=== PATIENT | male | born 1985 | race Two or more races ===

== ENCOUNTER 2022-09-16 10:20 | Emergency (ER) | payer SELFPAY ==
[2022-09-16] MEDS ORDERED: NA CHLORIDE 0.9% 1,000 ML ONE (11:02)
[2022-09-16] MEDS ORDERED: FAMOTIDINE 20 MG/2 ML VIAL IV ONE (11:02)
[2022-09-16] MEDS ORDERED: ONDANSETRON 4 MG/2 ML VIAL ONE ×2 (11:02→12:20)
[2022-09-16] MEDS ORDERED: MORPHINE 4 MG/ML SYR ONE ×2 (11:02→12:20)
--- NOTE | 2022-09-16 11:25 | RAD REPORT ---
EXAM DESCRIPTION: US - Abdomen Exam Limited - 09/16/2022 11:06 am CLINICAL HISTORY: Abdominal pain. COMPARISON: None. FINDINGS: The gallbladder wall is not thickened. A gallstone is not seen. The biliary tree is normal caliber. IMPRESSION: Unremarkable gallbladder ultrasound.
[2022-09-16 11:27] LABS: Absolute Lymphocytes (CBC) 1.5 K/uL (0.7-4.9); Hematocrit 48.8 % (39.6-49.0); Lymphocytes % 33.8 % (15.3-44.8); MCV 88.9 fL (80-100); MPV 9.7 fL (7.6-11.3)
[2022-09-16 11:28] LABS: Protime INR 1.1
[2022-09-16 11:46] LABS: Albumin 4.3 g/dL (3.4-5.0); Bilirubin Direct 0.2 mg/dL (0-0.2); Bilirubin Total 0.6 mg/dL (0.2-1.0); Magnesium 2.2 mg/dL (1.6-2.4); Protein, Total 7.9 g/dL (6.4-8.2); Troponin High Sensitivity 3.4 pg/mL (<58.9)
--- NOTE | 2022-09-16 11:58 | RAD REPORT ---
EXAM DESCRIPTION: Claire Single View09/16/2022 11:45 am CLINICAL HISTORY: Abdominal pain COMPARISON: none FINDINGS: The lungs appear clear of acute infiltrate. The heart is normal size IMPRESSION: No acute abnormalities displayed
[2022-09-16 12:12] LABS: Specific Gravity < 1.005 (1.005-1.030); Urine Bilirubin NEGATIVE (Negative); Urine Blood Negative (Negative); Urine Clarity Clear (Clear); Urine Color Colorless (Yellow); Urine Glucose NEGATIVE (Negative); Urine Protein NEGATIVE (Negative); Urine Urobilinogen Normal (Normal); Urine pH 7.5 (5.0-7.0)
--- NOTE | 2022-09-16 12:47 | RAD REPORT ---
EXAM DESCRIPTION: CTAbdomen Pelvis W Contrast - 09/16/2022 12:36 pm CLINICAL HISTORY: Abdominal pain. Constipation;Abd pain COMPARISON: <Comparisons> TECHNIQUE: Biphasic CT imaging of the abdomen and pelvis was performed with 100 ml non-ionic IV cont rast. All CT scans are performed using dose optimization technique as appropriate and may include automated exposure control or mA/KV adjustment according to patient size. FINDINGS: The lung bases are clear. The liver, spleen, pancreas, adrenal glands and kidneys are within normal limits. No bowel obstruction, free air, free fluid or abscess. There is a large volume of retained stool seen in the colon. The appendix is normal. No evidence of significant lymphadenopathy. No suspicious bony findings. IMPRESSION: Prominent constipation.
--- NOTE | 2022-09-16 12:58 | EDPHYS ---
Physician Documentation [facility] Name: Damian Eddy Jr Age: 37 yrs Sex: Male : 1985 Arrival Date: 09/16/2022 Time: 10:20 Bed 16 Private MD: ED Physician Jeff Reno HPI: 09/16 10:59 This 37 yrs old Male presents to ER via Ambulatory with complaints of jonna Abdominal Pain. 10:59 The patient presents with abdominal pain in the upper abdomen, in the right upper jonna quadrant, abdominal distention in the upper abdomen, in the lower abdomen. Onset: The symptoms/episode began/occurred 14 day(s) ago. The symptoms radiate to. Associated signs and symptoms: Pertinent positives: constipation. The symptoms are described as constant, crampy. Modifying factors: The symptoms are alleviated by nothing, the symptoms are aggravated by nothing. Severity of pain: At its worst the pain was moderate in the emergency department the pain is unchanged. The patient has not experienced similar symptoms in the past. Historical: - Allergies: 10:27 No Known Allergies; aa5 - PMHx: 10:27 Pancreatitis; aa5 - PSHx: 10:27 None; aa5 - Immunization history:: Adult Immunizations unknown. - Social history:: Smoking status: Patient reports the use of cigarette tobacco products. - Family history:: not pertinent. ROS: 10:59 Constitutional: Negative for fever, chills, and weight loss, Eyes: Negative for injury, jonna pain, redness, and discharge, ENT: Negative for injury, pain, and discharge, Neck: Negative for injury, pain, and swelling, Cardiovascular: Negative for chest pain, palpitations, and edema, Respiratory: Negative for shortness of breath, cough, wheezing, and pleuritic chest pain, Back: Negative for injury and pain, : Negative for injury, bleeding, discharge, and swelling, MS/Extremity: Negative for injury and deformity, Skin: Negative for injury, rash, and discoloration, Neuro: Negative for headache, weakness, numbness, tingling, and seizure, Psych: Negative for depression, anxiety, suicide ideation, homicidal ideation, and hallucinations, Allergy/Immunology: Negative for hives, rash, and allergies, Endocrine: Negative for neck swelling, polydipsia, polyuria, polyphagia, and marked weight changes, Hematologic/Lymphatic: Negative for swollen nodes, abnormal bleeding, and unusual bruising. 10:59 Abdomen/GI: Positive for abdominal pain, nausea and vomiting, of the epigastric area, right upper quadrant and left upper quadrant. Exam: 11:00 Constitutional: This is a well developed, well nourished patient who is awake, alert, jonna and in no acute distress. Head/Face: Normocephalic, atraumatic. Eyes: Pupils equal round and reactive to light, extra-ocular motions intact. Lids and lashes normal. Conjunctiva and sclera are non-icteric and not injected. Cornea within normal limits. Periorbital areas with no swelling, redness, or edema. ENT: Nares patent. No nasal discharge, no septal abnormalities noted. Tympanic membranes are normal and external auditory canals are clear. Oropharynx with no redness, swelling, or masses, exudates, or evidence of obstruction, uvula midline. Mucous membranes moist. Neck: Trachea midline, no thyromegaly or masses palpated, and no cervical lymphadenopathy. Supple, full range of motion without nuchal rigidity, or vertebral point tenderness. No Meningismus. Chest/axilla: Normal chest wall appearance and motion. Nontender with no deformity. No lesions are appreciated. Cardiovascular: Regular rate and rhythm with a normal S1 and S2. No gallops, murmurs, or rubs. Normal PMI, no JVD. No pulse deficits. Respiratory: Lungs have equal breath sounds bilaterally, clear to auscultation and percussion. No rales, rhonchi or wheezes noted. No increased work of breathing, no retractions or nasal flaring. Back: No spinal tenderness. No costovertebral tenderness. Full range of motion. Male : Normal genitalia with no discharge or lesions. Skin: Warm, dry with normal turgor. Normal color with no rashes, no lesions, and no evidence of cellulitis. MS/ Extremity: Pulses equal, no cyanosis. Neurovascular intact. Full, normal range of motion. Neuro: Awake and alert, GCS 15, oriented to person, place, time, and situation. Cranial nerves II-XII grossly intact. Motor strength 5/5 in all extremities. Sensory grossly intact. Cerebellar exam normal. Normal gait. Psych: Awake, alert, with orientation to person, place and time. Behavior, mood, and affect are within normal limits. 11:00 Abdomen/GI: Inspection: distension, that is mild, Bowel sounds: normal, Palpation: mild abdominal tenderness, moderate abdominal tenderness, in the epigastric area and right upper quadrant, Liver: no appreciated palpable abnormalities, Hernia: not appreciated. Vital Signs: 10:28 BP 121 / 90; Pulse 81; Resp 18 S; Temp 97.8(TE); Pulse Ox 100% on R/A; Weight 96.16 kg aa5 (R); Height 5 ft. 10 in. (R); 11:30 BP 124 / 85; Pulse 68; Resp 16; Pulse Ox 99% ; bp 12:30 BP 136 / 85; Pulse 75; Resp 16; Pulse Ox 100% ; bp 10:28 Body Mass Index 30.42 (96.16 kg, 177.8 cm) aa5 MDM: 10:32 Patient medically screened. [facility] 11:05 Differential diagnosis: appendicitis, bowel obstruction, Cholelithiasis, jonna diverticulitis, gastritis, gastroesophageal reflux disease, Irritable bowel syndrome, Mesenteric ischemia or infarction, non-specific abd pain, pancreatitis, Peptic Ulcer Disease, Pyelonephritis, urinary tract infection. Data reviewed: vital signs, nurses notes, lab test result(s), EKG, radiologic studies, CT scan, plain films. Consideration of Admission/Observation Escalation of care including admission/observation considered. I considered the following discharge prescriptions or medication management in the emergency department Medications were administered in the Emergency Department. See MAR. Test considered but Not performed: MRI: NO MRCP. Care significantly affected by the following chronic conditions: PANCREATITIS. Counseling: I had a detailed discussion with the patient and/or guardian regarding: the historical points, exam findings, and any diagnostic results supporting the discharge/admit diagnosis, lab results, radiology results, the need for outpatient follow up, for definitive care, a family practitioner, a dispatcher service. 09/16 10:33 Order name: Basic Metabolic Panel; Complete Time: 12:17 [facility] 09/16 10:33 Order name: CBC with Diff; Complete Time: 11:41 [facility] 09/16 10:33 Order name: LFT's; Complete Time: 12:17 [facility] 09/16 10:33 Order name: Magnesium; Complete Time: 12:17 [facility] 09/16 10:33 Order name: NT PRO-BNP; Complete Time: 12:17 09/16 10:33 Order name: PT-INR; Complete Time: 11:41 09/16 10:33 Order name: Troponin HS; Complete Time: 12:17 [facility] 09/16 10:33 Order name: Lipase; Complete Time: 12:17 [facility] 09/16 10:33 Order name: Urinalysis w/ reflexes; Complete Time: 12:17 09/16 10:33 Order name: XRAY Chest (1 view); Complete Time: 12:17 [facility] 09/16 10:51 Order name: CT Abd/Pelvis - PO and IV Contrast; Complete Time: 12:56 [facility] 09/16 10:51 Order name: US Abdomen Limited; Complete Time: 11:41 09/16 10:33 Order name: EKG; Complete Time: 10:34 [facility] 09/16 10:33 Order name: Cardiac monitoring; Complete Time: 11:48 [facility] 09/16 10:33 Order name: IV Saline Lock; Complete Time: 11:48 [facility] 09/16 10:33 Order name: Labs collected and sent; Complete Time: 11:48 [facility] 09/16 10:33 Order name: O2 Per Protocol; Complete Time: 11:48 [facility] 09/16 10:33 Order name: O2 Sat Monitoring; Complete Time: 11:48 [facility] Administered Medications: 11:00 Drug: NS 0.9% IV 1000 ml Route: IV; Rate: 1 bolus; Site: left forearm; bp 11:10 Drug: morphine IVP or IV 4 mg Route: IVP; Infused Over: 4 mins; Site: left forearm; bp 13:47 Follow up: Response: No adverse reaction bp 11:10 Drug: Ondansetron IVP 4 mg Route: IVP; Site: left forearm; bp 13:47 Follow up: Response: No adverse reaction bp 11:10 Drug: Famotidine IVP 20 mg Route: IVP; Site: left forearm; bp 13:47 Follow up: Response: No adverse reaction bp 12:23 Drug: NS 0.9% IV 1000 ml Route: IV; Rate: 1 bolus; Site: left forearm; bp 12:23 Drug: morphine IVP or IV 4 mg Route: IVP; Infused Over: 4 mins; Site: left forearm; bp 12:47 Follow up: Response: No adverse reaction bp 12:23 Drug: Ondansetron IVP 4 mg Route: IVP; Site: left forearm; bp 12:47 Follow up: Response: No adverse reaction bp 13:47 Drug: Lactulose PO 30 grams Volume: 45 ml; Route: PO; bp 13:47 Follow up: Response: No adverse reaction bp 13:47 Not Given (Other Intervention Used): Dulcolax [place] Suppository 10 mg UT once bp 13:47 Drug: Lactulose PO 30 grams Volume: 45 ml; Route: PO; bp 13:48 Follow up: Response: No adverse reaction bp Disposition Summary: 09/16/22 12:57 Discharge Ordered Location: Home jonna Problem: new ojnna Symptoms: have improved jonna Condition: Stable jonna Diagnosis - Epigastric abdominal tenderness jonna - Constipation, unspecified jonna - Constipation jonna Followup: jonna - With: Private Physician - When: 2 - 3 days - Reason: Recheck today's complaints, Continuance of care, Re-evaluation by your physician Followup: jonna - With: - When: 2 - 3 days - Reason: Recheck today's complaints, Re-evaluation by your physician Discharge Instructions: - Discharge Summary Sheet jonna - Abdominal Pain, Adult jonna - Constipation, Adult jonna - Constipation, Adult, [id number] jonna - Abdominal Pain, Adult, [id number] jonna Forms: - Medication Reconciliation Form jonna - Thank You Letter jonna - Antibiotic Education jonna - Prescription Opioid Use jonna - Work release form bp Prescriptions: - Dulcolax (bisacodyl) 10 mg Rectal suppository - insert 1 suppository by RECTAL route 2 times per day for 7 days; 14 jonna suppository; Refills: 0, Product Selection Permitted - Pepcid 20 mg Oral Tablet - take 1 tablet by ORAL route every 12 hours for 21 days; 42 tablet; Refills: 0, [facility] Product Selection Permitted - Zofran 4 mg Oral Tablet - take 1 tablet by ORAL route every 12 hours As needed; 20 tablet; Refills: 0, [facility] Product Selection Permitted - Lactulose 10 gram/15 mL Oral Solution - take 30 milliliters by ORAL route once daily; 300 milliliter; Refills: 0, [facility] Product Selection Permitted Signatures: Dispatcher [employer] [facility] Jeff Reno MD MD cha Calderon, Audri, RN RN aa5 Shukri Franks RN RN bp Corrections: (The following items were deleted from the chart) 10:59 10:34 Abdomen Pelvis W Con+CT.RAD.BRZ ordered. EDMS EDMS
--- NOTE | 2022-09-16 12:58 | ER ---
Nurse's Notes [facility] Name: Damian Eddy Jr Age: 37 yrs Sex: Male : 1985 Arrival Date: 09/16/2022 Time: 10:20 Bed 16 Private MD: Diagnosis: Epigastric abdominal tenderness;Constipation, unspecified;Constipation Presentation: 09/16 10:28 Chief complaint: Patient states: abd pain for approximately 1-2 weeks ago, pt states "I aa5 was admitted for my pancreas last year". Coronavirus screen: At this time, the client does not indicate any symptoms associated with coronavirus-19. Ebola Screen: Patient denies travel to an Ebola-affected area in the 21 days before illness onset. Initial Sepsis Screen: Does the patient meet any 2 criteria? No. Patient's initial sepsis screen is negative. Does the patient have a suspected source of infection? No. Patient's initial sepsis screen is negative. Risk Assessment: Do you want to hurt yourself or someone else? Patient reports no desire to harm self or others. Onset of symptoms was September 2022. 10:28 Acuity: CIRILO 3 aa5 10:28 Method Of Arrival: Ambulatory aa5 Triage Assessment: 10:30 General: Appears in no apparent distress. Behavior is calm, cooperative, appropriate bp for age. Pain: Complains of pain in epigastric area. EENT: No deficits noted. Neuro: No deficits noted. Cardiovascular: No deficits noted. Respiratory: No deficits noted. GI: Reports upper abdominal pain. : No signs and/or symptoms were reported regarding the genitourinary system. Derm: No deficits noted. Musculoskeletal: No deficits noted. Historical: - Allergies: 10:27 No Known Allergies; aa5 - PMHx: 10:27 Pancreatitis; aa5 - PSHx: 10:27 None; aa5 - Immunization history:: Adult Immunizations unknown. - Social history:: Smoking status: Patient reports the use of cigarette tobacco products. - Family history:: not pertinent. Screenin:30 [facility] ED Fall Risk Assessment (Adult) History of falling in the last 3 months, bp including since admission No falls in past 3 months (0 pts). Abuse screen: Denies threats or abuse. Denies injuries from another. Nutritional screening: No deficits noted. Tuberculosis screening: No symptoms or risk factors identified. Assessment: 10:30 General: SEE TRIAGE NOTE. bp 12:30 Reassessment: No changes from previously documented assessment. Patient is alert, bp oriented x 3, equal unlabored respirations, skin warm/dry/pink. PT RETURNED FROM CT. 14:07 Reassessment: Patient appears in no apparent distress at this time. Patient and/or iw family updated on plan of care and expected duration. Pain level reassessed. Patient is alert, oriented x 3, equal unlabored respirations, skin warm/dry/pink. 14:07 GI: Bowel sounds Abd is soft and non tender. iw Vital Signs: 10:28 BP 121 / 90; Pulse 81; Resp 18 S; Temp 97.8(TE); Pulse Ox 100% on R/A; Weight 96.16 kg aa5 (R); Height 5 ft. 10 in. (R); 11:30 BP 124 / 85; Pulse 68; Resp 16; Pulse Ox 99% ; bp 12:30 BP 136 / 85; Pulse 75; Resp 16; Pulse Ox 100% ; bp 10:28 Body Mass Index 30.42 (96.16 kg, 177.8 cm) aa5 ED Course: 10:24 Patient arrived in ED. am2 10:27 Arm band placed on. aa5 10:29 Triage completed. aa5 10:30 Shukri Franks, RN is Primary Nurse. bp 10:30 Patient has correct armband on for positive identification. Bed in low position. Call bp light in reach. Side rails up X2. 10:30 Inserted saline lock: 20 gauge in left forearm, using aseptic technique. Blood bp collected. 10:32 Jeff Reno MD is Attending Physician. jonna 11:08 US Abdomen Limited In Process Unspecified. EDMS 11:47 XRAY Chest (1 view) In Process Unspecified. EDMS 12:38 CT Abd/Pelvis - PO and IV Contrast In Process Unspecified. EDMS 12:57 Esteban Grover MD is Referral Physician. jonna 14:07 No provider procedures requiring assistance completed. IV discontinued, intact, iw bleeding controlled, No redness/swelling at site. Administered Medications: 11:00 Drug: NS 0.9% IV 1000 ml Route: IV; Rate: 1 bolus; Site: left forearm; bp 11:10 Drug: morphine IVP or IV 4 mg Route: IVP; Infused Over: 4 mins; Site: left forearm; bp 13:47 Follow up: Response: No adverse reaction bp 11:10 Drug: Ondansetron IVP 4 mg Route: IVP; Site: left forearm; bp 13:47 Follow up: Response: No adverse reaction bp 11:10 Drug: Famotidine IVP 20 mg Route: IVP; Site: left forearm; bp 13:47 Follow up: Response: No adverse reaction bp 12:23 Drug: NS 0.9% IV 1000 ml Route: IV; Rate: 1 bolus; Site: left forearm; bp 12:23 Drug: morphine IVP or IV 4 mg Route: IVP; Infused Over: 4 mins; Site: left forearm; bp 12:47 Follow up: Response: No adverse reaction bp 12:23 Drug: Ondansetron IVP 4 mg Route: IVP; Site: left forearm; bp 12:47 Follow up: Response: No adverse reaction bp 13:47 Drug: Lactulose PO 30 grams Volume: 45 ml; Route: PO; bp 13:47 Follow up: Response: No adverse reaction bp 13:47 Not Given (Other Intervention Used): Dulcolax [place] Suppository 10 mg [place] once bp 13:47 Drug: Lactulose PO 30 grams Volume: 45 ml; Route: PO; bp 13:48 Follow up: Response: No adverse reaction bp Medication: 14:07 VIS not applicable for this client. iw Outcome: 12:57 Discharge ordered by . jonna 14:07 Discharged to home ambulatory. iw 14:07 Condition: good 14:07 Discharge instructions given to patient, Instructed on discharge instructions, follow up and referral plans. medication usage, Demonstrated understanding of instructions, follow-up care, medications, Prescriptions given X 3. 14:07 Patient left the ED. iw Signatures: Dispatcher [employer] [facility] Jeff Reno MD MD cha Williams, Irene RN RN iw Lelia Good, RN RN [id number] Beatrice Ferrara Brian RN RN bp
[2022-09-16] MEDS ORDERED: LACTULOSE 20 GM/30 ML UCUP ONE (13:30)
[2022-09-16 14:14] VITALS: TEMP 97.8
[2022-09-16 14:17] VITALS: BP 136/85; O2SAT 100
== END 2022-09-16 14:07 | disposition home or self-care (01) ==
LOC: ER 10:20
DX: K59.00 Constipation, unspecified (principal)
CPT/HCPCS: 36415; 71045; 74177; 76705; 80048; 80076; 81003; 83690; 83735; 83880; 84484; 85025; 85610; 96374; 96375; 99284; J2405; J7030; Q9967

== ENCOUNTER 2022-12-11 11:59 | Emergency (ER) | payer OTHER, SELFPAY ==
--- OUTSIDE RECORDS SUMMARY | 2022-12-11 12:02 | XMS REPORT | Continuity of Care Document ---
:1985 Author Organization [facility] t Address [address] [place] [address] Care Team Providers Name Role Phone Asked, No Pcp Primary Care Physician Unavailable NASIR HARRIS SI Attending Clinician Unavailable BARBARA CLARK Attending Clinician Unavailable Salvatore Rivera Attending Clinician Unavailable MADINA BANDA Attending Clinician Unavailable Physician, No Primary or Family Admitting Clinician Unavaila ble Payers Payer Name Policy Type Policy Number Effective Date Expiration Date S ource Problems This patient has no known problems. Allergies, Adverse Reactions, Alerts Allergy Allergy Status Severity Reaction(s) Onset Inactive Treating Comm ents Source Name Type Date Date Clinician No Known DA Active [facility] 05-28 [facility] Social History Social Habit Start Date Stop Date Quantity Comments Source [facility] of tobacco Smokes tobacco [facility] Cigarettes smoked 2021-07-02 2021-07-[address] current (pack per 00:00:00 00:00:00 Hospita l day) - Reported Tobacco use and 2021-07-02 2021-07-02 Smokeless [facility] 00:00:00 00:00:00 tobacco non-user Hospital Alcohol intake 2021-07-02 2021-07-02 Current drinker [facility] 00:00:00 00:00:00 of alcohol Hospital (finding) History of Social 2021-07-02 2021-07-[address] function 00:00:00 00:00:00 Hospital Sex Assigned At [birth year] [facility] Smoking Status Start Date Stop Date Source Smokes tobacco daily 2021-07-02 00:00:00 [facility] Medications Ordered Filled Start Stop Current Ordering Indication Dosage Frequency Signature Comments Components Source Medication Medication Date Date Medication? Clinician (SIG) Name Name anna Yes 250mg QD Take 1 [facility] n [facility]-[address] (Zithromax 00:00: (250 mg [facility]) 250 00 total) by l MG tablet mouth daily. Take 2 tablets the first day, then 1 tablet daily for 4 days. Procedures This patient has no known procedures. Plan of Care Planned Activity Planned Date Details Comments Source Future Scheduled 2022-11-01 COVID-19 VACCINE (#1) [facility] Test 14:47:18 [code = COVID-19 VACCINE (#1)] Future Scheduled 2022-11-01 Pneumococcal Vaccine: [facility] Test 14:47:18 Pediatrics (0 to 5 Years) and At-Risk Patients (6 to 64 Years) (1 - PCV) [code = Pneumococcal Vaccine: Pediatrics (0 to 5 Years) and At-Risk Patients (6 to 64 Years) (1 - PCV)] Future Scheduled 2022-11-01 Hepatitis C screening [facility] Test 14:47:18 (procedure) [code = 041816875] Future Scheduled 2022-11-01 INFLUENZA VACCINE [facility] Test 14:47:18 [code = INFLUENZA VACCINE] Encounters Start End Encounter Admission Attending Care Care Encounter Source Date/Time Date/Time Type Type Clinicians Facility Department ID 2021-12-04 2021-12-04 Emergency E NASIR HARRIS FB FB [id number] FB 08:41:00 13:16:00 2021-07-02 2021-07-02 Emergency [facility] [place] [id number] [place] 00:00:00 00:00:00 JIMENEZ [address] 2021-05-28 2021-05-29 Emergency EM Miguel, [facility] KATY [id number] [facility] 22:40:00 02:10:00 Salvatore [address] [facility] david [facility] 2020-12-21 2020-12-21 Emergency E VERONIKA, [facility] [address] [facility] 16:10:00 22:50:00 MADINA Results Test Description Test Time Test Comments Results Result Comments Source COVID 19 INHOUSE AG 2021-05-29 01:44:00 Test Item Value Reference Range Interpretation Comme nts COVID 19 INHOUSE AG (test code = NEGATIVE Negative Per door manager, negative [id number]) results should be treated aspresumptive a nd, if inconsistent wi th clinical signs andsymptoms or necessary for patient managem ent, should betested with a n alternative molecular assay . Negative resultsdo not p reclude SARS-CoV-2 infection and s hould not be usedas the sole basis for patient management deci sions. Negative results should be considered in the context of apatient's recent exposures, hist ory, presence of clinicalsigns a nd symptoms consistent with COVID-19. NT PRO-BRAIN NATRIURETIC [id number] 01:27:00 Test Item Value Reference Range Interpretation Comments NT PRO-BRAIN NATRIURETIC PEPTI (test 13 PG/ML 0-100 N code = PROBNP) Completed by Nursing: NOTROP-I HIGH [id number] 01:27:00 Test Item Value Reference Range Interpretation Comments TROP-I HIGH 10.5 ng/L 0-54 N CAUTION: Units of the SENSITIVITY (test current te st methodology code = TROPIHS) (ng/L) diffe rfrom the prior test meth odology (ng/mL) by a fa ctor of 1000. 99t h Percentile Uppe r Reference Limit (URL):Fem ales: 34 ng/LMales: 54 n g/L In order to distin guish acute elevations of h igh sensitivitytrop onin from other clinical conditions, the FourthUnive rsal Definition of M yocardial Infarction stressesclinica l assessment and the demonstration o f a rise and/orfall in s erial troponin result s above the URL. Results fr om different metho dologies should not be c omparedto one another as quantitative re sults and URLs may varyby method. Completed by Nursing: NOBASIC METABOLIC [id number] 01:27:00 Test Item Value Reference Range Interpretation Comments SODIUM (test code = NA) 143 mmol/L 134-147 N POTASSIUM (test code = 3.5 mmol/L 3.4-5.0 N K) CHLORIDE (test code = 107 mmol/L 100-108 N CL) CARBON DIOXIDE (test 28 mmol/L 21-32 N code = CO2) ANION GAP (test code = 8.0 GAP calc 4.0-15.0 N GAP) GLUCOSE (test code = 94 MG/DL 70-110 N GLU) BLOOD UREA NITROGEN 5 MG/DL 7-18 L (test code = BUN) GLOMERULAR FILTRATION >=60 max estimate >60 RATE (test code = GFR) estGFR CREATININE (test code = 0.9 MG/DL 0.8-1.3 N CREAT) CALCIUM (test code = CA) 8.8 MG/DL 8.5-10.1 N Completed by Nursing: NOHEPATIC FUNCTION [id number] 01:27:00 Test Item Value Reference Range Interpretation Comments TOTAL PROTEIN (test code = PROT) 7.8 G/DL 6.4-8.2 N ALBUMIN (test code = ALB) 4.1 G/DL 3.4-5.0 N BILIRUBIN TOTAL (test code = BILT) 0.70 MG/DL 0.2-1.2 N BILIRUBIN DIRECT (test code = 0.30 MG/DL 0.00-0.30 N BILD) BILIRUBIN INDIRECT (test code = 0.40 MG/DL 0.2-1.2 N BILIND) SGOT/AST (test code = AST) 292 Unit/L 15-37 H SGPT/ALT (test code = ALT) 145 Unit/L 12-78 H ALKALINE PHOSPHATASE TOTAL (test 67 Unit/L 50-136 N code = ALKP) Completed by Nursing: NOCREATINE KINASE (CK)2021-05-29 01:27:00 Test Item Value Reference Range Interpretation Comments CREATINE KINASE (CK) (test code = 564 Unit/L 26-192 H CK) Completed by Nursing: NOCBC W/O [id number] 01:13:00 Test Item Value Reference Range Interpretation Comments WHITE BLOOD CELL (test code = WBC) 3.2 K/mm3 3.5-11.0 L RED BLOOD CELL (test code = RBC) 4.43 M/mm3 4.70-6.10 L HEMOGLOBIN (test code = HGB) 15.3 G/DL 12.3-15.9 N HEMATOCRIT (test code = HCT) 44.4 % 35.8-46.7 N MEAN CELL VOLUME (test code = MCV) 100.2 Fl 86.3-98.9 H MEAN CELL HGB (test code = MCH) 34.5 pg 28.9-34.4 H MEAN CELL HGB CONCETRATION (test 34.5 G/DL 32.1-34.5 N code = MCHC) RED CELL DISTRIBUTION WIDTH (test 13.2 SD 11.5-14.5 N code = RDW) PLATELET COUNT (test code = PLT) 153 K/mm3 150-450 N MEAN PLATELET VOLUME (test code = 11.20 fL 7.0-9.6 H MPV) - XR CHEST 1 [id number] 00:26:00 [facility] 1985 Sex: M Name: KARON LANDA [facility] : 1985 Age/S: 36 / M [id number] Unit #: [id number] Loc: [place] [address] Phys: Salvatore Rivera MD Acct: [id number] Dis Date: Status: REG ER PHONE #: [phone] Exam Date: 05/29/2021 0015 FAX #: Reason: chest pain EXAMS: CPT: [id number] XR CHEST 1 V [id number] Fluoro Time: DAP (Gy m2): Air Kerma (mGy): CHEST X-RAY 1 VIEW Dictation Location: N13 CLINICAL HISTORY: chest pain Covid exposure Technique: A single frontal view of the chest was obtained. FINDINGS: Bony structures are unremarkable. The aortic, hilar and cardiac outlines are normal. The lungs are clear of infiltrates or suspicious nodules. No pleural effusion or pneumothorax. IMPRESSION: Normal chestx-ray. at 0026 Reported and signed by: Chiquita Prieto M.D. CC: PAGE 1 Signed Report Name: KARON LANDA [facility] : 1985 Age/S: 36 / M [address] Unit #: [id number] Loc: [place] [address] Phys: Salvatore Rivera MD Acct: [id number] Dis Date: Status: REG ER PHONE #: [phone] Exam Date: 05/29/2021 0015 FAX #: Reason: chest pain EXAMS: CPT: [id number] XR CHEST 1 V 45221 Fluoro Time: DAP (Gy m2): Air Kerma (mGy): (Continued) Technologist: Bobby Woodard, RT(R)(CT) Trnscb Date/Time: 05/29/2021 (25) GaT Orig Print D/T: S: 05/29/2021 (0029) PAGE 2 Signed Report Notes Date/Time Note Provider Source 2021-05-29 01:37:00-00:00 [facility] ([facility]) EMERGENCY PROVIDER REPORT REPORT#:[id number] REPORT STATUS: Signed DATE:05/29/21 TIME:0137 PATIENT: KARON LANDA UNIT #: [id number] ROOM/BED: : 87 AGE: 36 SEX: M PCP PHYS: No Primar y or Family Physician SERVICE AUTHOR: Salvatore Rivera MD * ALL edits or amendments must be made on the el ectronic/computer document * HPI-URI/Cough/Cold Free Text HPI Notes Free Text HPI Notes 36-year-old male with a past medical history of drug abuse and daily alcohol use presents emergency department via EMS fo r 18 days of URI and flulike symptoms. Patient reports chest pain, shortness of breath, cough, fever, chills, body aches. Patient states that family members of his recently were diagnosed with COVID. Patient denies nausea vomiting or diarrhe a. General Initial Greet Date/Time 05/28/212243 Presentation Chief Complaint Cough, non-productive, Fever, Na debbi congestion, Upper resp infection Review of Systems ROS Statements All systems rev neg except as marked. Focused Review of Systems Constitutional Denies: Chills, Fever, Lethargy. Eyes Denies: Eye pain bilat, Redness bilat, Visual lo ss bilat. Respiratory Denies: Cough, non-productive, Cough, productive , Shortness of breath. GI Denies: Abdominal pain, Diarrhea, Nausea, Vomiti ng. Skin Denies: Diaphoresis, Rash. Allergy/Immun Denies: Hives, Itching. Neurologic Denies: Change LOC, Dizziness, Focal weakness, H eadache, Numbness, Slurred speech. Past Medical History - Adult Stated Complaint COVID EXPOSURE, CP, SOB, ETOH I NTOXICATION Allergies Coded Allergies: No Known Allergies (05/28/21) Calculated Suicide Risk (nurs) No risk Smoking status: Smoking status for patients 13 years old or old er: Current every day smoker Physical Exam Vital Signs Vital Signs First Documented: Result Date Time Pulse Ox 100 05/28 2240 B/P 144/80 05/28 2240 B/P Mean 101 05/28 2240 O2 Delivery Room air 05/28 2240 Temp 37.8 05/28 2240 Pulse 110 05/28 2240 Resp 20 05/28 2240 Last Documented: Result Date Time Pulse Ox 98 05/29 209 B/P 135/69 05/29 209 B/P Mean 91 05/29 209 Temp 37.2 05/29 209 Pulse 90 05/29 209 Resp 18 05/29 209 O2 Delivery Room air 05/28 2314 Review of Vital Signs Reviewed Focused PE General/Const General/Const Awake, Alert, Well appearing, Not toxic appearing Eyes Eyes PERRL Ears/Nose/Throat Ears/Nose/Throat Airway patent, Mucous membrane s moist, Pharynx NL, Tympanic membs NL, Ext aud canal NL, Nose exam NL, No sin us tenderness MS Neck Neck Supple, No meningismus, Full range of motion, No adenopathy, No swelling , Non-tender Resp/Chest Respiratory/Chest Breath sounds NL, Breath soun ds = bilat, No respiratory distress, No rales, No rhonchi, No wheezing, No retractions, No stridor Cardiovascular Cardiovascular Regular rhythm, Heart sounds NL, Peripheral circulation NL Heart Rate/Rhythm Tachycardia. Abdomen/GI Abdomen/GI Soft, Non-tender, No guarding, No re bound Skin Skin Color NL, No rash, Warm, Dry, Turgor NL Neurologic Neurologic Oriented X3, Speech NL, No motor def icits, No sensory deficits Interpretation Diagnostics Lab Results Interpretation Results Laboratory Tests 05/29/21 0045: [Embedded Image Not Available] Laboratory Tests: 05/29 05/29 0121 0045 Chemistry Sodium (134 - 147 mmol/L) 143 Potassium (3.4 - 5.0 mmol/L) 3.5 Chloride (100 - 108 mmol/L) 107 Carbon Dioxide (21 - 32 mmol/L) 28 Anion Gap (4.0 - 15.0 GAP calc) 8.0 BUN (7 - 18 MG/DL) 5 L Creatinine (0.8 - 1.3 MG/DL) 0.9 Glomerular Filtr Rate (>60 estGFR) >=60 max est imate Glucose (70 - 110 MG/DL) 94 Calcium (8.5 - 10.1 MG/DL) 8.8 Total Bilirubin (0.2 - 1.2 MG/DL) 0.70 Direct Bilirubin (0.00 - 0.30 MG/DL) 0.30 Indirect Bilirubin (0.2 - 1.2 MG/DL) 0.40 AST (15 - 37 Unit/L) 292 H ALT (12 - 78 Unit/L) 145 H Total Alk Phosphatase (50 - 136 Unit/L) 67 Total Creatine Kinase (26 - 192 Unit/L) 564 H Troponin I High Sens (0 - 54 ng/L) 10.5 NT-Pro-B Natriuret Pep (0 - 100 PG/ML) 13 Total Protein (6.4 - 8.2 G/DL) 7.8 Albumin (3.4 - 5.0 G/DL) 4.1 Hematology WBC (3.5 - 11.0 K/mm3) 3.2 L RBC (4.70 - 6.10 M/mm3) 4.43 L Hgb (12.3 - 15.9 G/DL) 15.3 Hct (35.8 - 46.7 %) 44.4 MCV (86.3 - 98.9 Fl) 100.2 H MCH (28.9 - 34.4 pg) 34.5 H MCHC (32.1 - 34.5 G/DL) 34.5 RDW (11.5 - 14.5 SD) 13.2 Plt Count (150 - 450 K/mm3) 153 MPV (7.0 - 9.6 fL) 11.20 H Serology SARS-CoV-2 Ag (Rapid) (Negative) NEGATIVE Recent Impressions: RADIOLOGY - XR CHEST 1 V 05/29 0010 Report Impression - Status: SIGNED Entered: 05/29/2021 0029 IMPRESSION: Normal chest x-ray. Impression By: Magnus Prieto M.D. ECG #1 Interpretation Text/Dict Note EKG reviewed and interpreted by myself. Time 225 1. Heart rate 115, sinus tachycardia, normal intervals, no STEMI. Re-Evaluation MDM Free Text MDM Notes Free Text MDM Notes The patient is now resting c omfortably, is alert and in no distress. The patient has a normal mental status and is neurologically intact. The patient appears well and is able to tolerate food or fluid by mouth, and there is no significant dehydration. There is no res piratory distress and no signs of systemic toxicity. The history, exam, diagnostic testing an d current condition do not demonstrate an infectious process such as meningitis, severe pneumonia, retropharyngeal abscess, epiglottitis, sepsis or other serious b acterial infection requiring further testing, treatment, consultation , or admission at this time. The vital signs have been stable. The patient's condition is stable and appropriate for discharge. Re-Evaluation/Progress Re-Evaluation/Progress Time of Re-Eval 0156 Re-Eval Status stable ED Course Medication(s) Ordered Medication(s) Ordered: Central Nervous System Agents Sig/Luis Enrique Start time Last Medication Dose Route Stop Time Status Admin Aspirin 324 MG X1ED STA 05/29 0002 DC 05/29 PO 05/29 0003 0101 Acetaminophen 1,000 MG X1ED STA 05/288 DC 0 05/28 PO 05/28 2258 2308 Electrolytic, Caloric, And Uma Sig/Luis Enrique Start time Last Medication Dose Route Stop Time Status Admin Sodium Chloride 1,000 ML X1ED STA 05/29 0002 DC 05/29 IV 05/29 0102 0102 Patient Discharge Departure Vital Signs/Condition Vital Signs First Documented: Result Date Time Pulse Ox 100 05/28 2240 B/P 144/80 05/28 2240 B/P Mean 101 05/28 2240 O2 Delivery Room air 05/28 2240 Temp 37.8 05/28 2240 Pulse 110 05/28 2240 Resp 20 05/28 2240 Last Documented: Result Date Time Pulse Ox 98 05/29 0210 B/P 135/69 05/29 0210 B/P Mean 91 05/29 0210 Temp 37.2 05/29 0210 Pulse 90 05/29 0210 Resp 18 05/29 0210 O2 Delivery Room air 05/28 2315 All vital signs available at the time of this en try have been reviewed. Condition Stable Clinical Impression Clinical Impression Primary Impression: Viral syndrome Disposition Decision Discharge )( Discharged to Home Yes )( Time 0206 )( Date 05/29/21 Discharge/Care Plan Counseled Regarding Diagnosi s, Lab results, Imaging studies, Prescriptions, Need for follow-up, When to return to ED (Auto) Prescriptions Current Visit Scripts D-METHORPHAN HB/P-EPD HCL/BPM (BROMPHENIR-PSEUDO EPHED-DM SYR) 5 ML PO Q4H PRN PRN COUGH D-METHORPHAN HB/P-EPD HCL/BPM (BROMPHENIR-PSEUD OEPHED-DM SYR) 5 ML PO Q4H PRN PRN COUGH #75 ML IBUPROFEN (MOTRIN) 600 MG PO QID PRN PRN PAIN IBUPROFEN (MOTRIN) 600 MG PO QID PRN PRN PAIN # 30 TABS ONDANSETRON ODT (ZOFRAN ODT) 4 MG PO Q6H PRN PRN NAUSEA/VOMITING ONDANSETRON ODT (ZOFRAN ODT) 4 MG PO Q6H PRN MS N NAUSEA/VOMITING #15 TABS chlordiazePOXIDE (LIBRIUM) 25 MG PO TID chlordiazePOXIDE (LIBRIUM) 25 MG PO TID #15 CAP S Patient Instructions ED Viral Syndrome (Adult) Additional Instructions You may benefit from taking the following over-t he-counter supplements Quercetin 500 mg twice daily Vitamin D 4000 units daily Vitamin C 500 mg twice daily Melatonin 10 mg at night as needed Zinc 100 mg daily B complex vitamins daily Famotidine 20 to 40 mg daily Referrals Sheldon Ayala MD: 1 Week Electronically Signed by Salvatore Rivera MD on at 0438 RPT #: [id number] END OF REPORT
[2022-12-11] MEDS ORDERED: IBUPROFEN 400 MG TAB ONE (12:53)
[2022-12-11] MEDS ORDERED: ACETAMINOPHEN 325 MG TABLET ONE (12:53)
--- NOTE | 2022-12-11 13:25 | RAD REPORT ---
EXAM DESCRIPTION: RAD - Forearm Right - 12/11/2022 1:19 pm CLINICAL HISTORY: trauma COMPARISON: Hand Right 3 View dated 12/11/2022 FINDINGS: There is fracture of the radial styloid seen involving the radial articular surface. Moder ate adjacent soft tissue swelling. No dislocation.
--- NOTE | 2022-12-11 13:26 | RAD REPORT ---
EXAM DESCRIPTION: RAD - Hand Right 3 View - 12/11/2022 1:19 pm CLINICAL HISTORY: trauma COMPARISON: No comparisons FINDINGS: Radial styloid fracture with slight depressed segment is noted extending to the radial art icular surface. No dislocation. Moderate adjacent soft tissue swelling.
[2022-12-11] MEDS ORDERED: HYDROCODONE/APAP 5/325 MG TAB ONE (14:05)
--- NOTE | 2022-12-11 14:23 | ER ---
Nurse's Notes [facility] Name: Damian Eddy Jr Age: 37 yrs Sex: Male : 1985 Arrival Date: 12/11/2022 Time: 11:59 Bed 11 Private MD: Diagnosis: Fracture of lower end of radius Presentation: 12/11 12:04 Chief complaint:. Coronavirus screen: Client denies travel out of the [place] in the last ll1 14 days. At this time, the client does not indicate any symptoms associated with coronavirus-19. Ebola Screen: Patient denies travel to an Ebola-affected area in the 21 days before illness onset. Initial Sepsis Screen: Does the patient meet any 2 criteria? No. Patient's initial sepsis screen is negative. Risk Assessment: Do you want to hurt yourself or someone else? Patient reports no desire to harm self or others. Onset of symptoms was December 10, 2022. 12:04 Method Of Arrival: Ambulatory 1 12:04 Acuity: CIRILO 4 ll1 12:08 Chief complaint: Patient states: R wrist pain/swelling since last night. Playing ll1 basketball and his son landed on it. Initial Sepsis Screen: Does the patient have a suspected source of infection? Yes: Bone or joint infection. Triage Assessment: 12:09 General: Appears uncomfortable, Behavior is calm, cooperative, appropriate for age. ll1 Pain: Complains of pain in right arm Pain currently is 9 out of 10 on a pain scale. Quality of pain is described as aching, throbbing. Musculoskeletal: Circulation, motion, and sensation intact. Capillary refill < 3 seconds, Swelling present in right arm. Historical: - Allergies: 13:57 No Known Allergies; jb4 - PMHx: 12:03 Pancreatitis; ll1 - Immunization history:: Adult Immunizations up to date. - Social history:: Smoking status: Reported history of juuling and/or vaping. Screenin:[facility] ED Fall Risk Assessment (Adult) History of falling in the last 3 months, ss including since admission No falls in past 3 months (0 pts). Abuse screen: Denies threats or abuse. Denies injuries from another. Nutritional screening: No deficits noted. Tuberculosis screening: Never had TB. Assessment: 14:33 Reassessment: Patient appears in no apparent distress at this time. Patient and/or ss family updated on plan of care and expected duration. Pain level reassessed. Vital Signs: 12:08 BP 108 / 81; Pulse 88; Resp 18; Temp 99; Pulse Ox 95% on R/A; Weight 95.25 kg; Height 5 ll1 ft. 10 in. ; Pain 9/10; 12:08 Body Mass Index 30.13 (95.25 kg, 177.8 cm) ll1 12:08 Pain Scale: Adult ll1 ED Course: 12:03 Patient arrived in ED. ts1 12:06 Triage completed. ll1 12:06 Arm band placed on Patient placed in an exam room, on a stretcher. ll1 12:08 Beatrice Carlton NP is PHCP. aj3 12:08 Marciano Handley DO is Attending Physician. aj3 13:20 Forearm Right XRAY In Process Unspecified. EDMS 13:20 Hand Right 3 View XRAY In Process Unspecified. EDMS 14:19 Anaya Pickard RN is Primary Nurse. ss 14:20 Óscar Vences MD is Referral Physician. aj3 14:20 No provider procedures requiring assistance completed. Patient did not have IV access ss during this emergency room visit. Orthoglass splint: Sugar tong splint applied on right arm. Sling applied to right arm. Administered Medications: 12:48 Drug: Ibuprofen PO 800 mg Route: PO; ss 13:56 Follow up: Response: No adverse reaction jb4 12:48 Drug: Acetaminophen PO 650 mg Route: PO; ss 13:57 Follow up: Response: No adverse reaction jb4 13:56 Drug: HYDROcodone-acetaminophen PO 5 mg-325 mg 1 tabs Route: PO; jb4 14:20 Follow up: Response: No adverse reaction; Medication administered at discharge. ss Outcome: 14:21 Discharge ordered by MD. aj3 14:33 Discharged to home ambulatory. ss 14:33 Condition: good 14:33 Discharge instructions given to patient, Instructed on discharge instructions, follow up and referral plans. Demonstrated understanding of instructions, follow-up care, medications, Prescriptions given X 1. 14:35 Patient left the ED. ss Signatures: Dispatcher [employer] EDMS Anaya Pickard RN RN Vance Juarez RN RN jb4 Sri Merritt RN RN ll1 Beatrice Carlton, [employer] TECHNICIAN aj3 Antonia Gregory, PAS PAS ts1 Corrections: (The following items were deleted from the chart) 12:40 12:40 33.29 kg; BMI: 10.5; ss ss
--- NOTE | 2022-12-11 14:23 | EDPHYS ---
Physician Documentation [facility] Name: Damian Eddy Jr Age: 37 yrs Sex: Male : 1985 Arrival Date: 12/11/2022 Time: 11:59 Bed 11 Private MD: ED Physician Marciano Handley HPI: 12/11 12:20 This 37 yrs old [place] Male presents to ER via Ambulatory with complaints of Arm Pain.aj3 12:20 Patient reports that he was playing basketball with his sons yesterday and then one of aj3 them fell landing on his right arm. Patient reports that he is injured that same wrist in the past. Patient reports pain with movement and swelling.. Historical: - Allergies: 13:57 No Known Allergies; jb4 - PMHx: 12:03 Pancreatitis; ll1 - Immunization history:: Adult Immunizations up to date. - Social history:: Smoking status: Reported history of juuling and/or vaping. ROS: 12:20 Constitutional: Negative for fever, chills, and weight loss, Neck: Negative for injury, aj3 pain, and swelling, Cardiovascular: Negative for chest pain, palpitations, and edema, Respiratory: Negative for shortness of breath, cough, wheezing, and pleuritic chest pain, Abdomen/GI: Negative for abdominal pain, nausea, vomiting, diarrhea, and constipation, Back: Negative for injury and pain, Skin: Negative for injury, rash, and discoloration, Neuro: Negative for syncope, headache, weakness, numbness, tingling, and seizure. 12:20 MS/extremity: Positive for decreased range of motion, pain, swelling. Exam: 12:25 Constitutional: This is a well developed, well nourished patient who is awake, alert, aj3 and in no acute distress. Neck: Supple, full range of motion without nuchal rigidity. Cardiovascular: Regular rate and rhythm with a normal S1 and S2. No gallops, murmurs, or rubs. Normal PMI, no JVD. No pulse deficits. Respiratory: Lungs have equal breath sounds bilaterally, clear to auscultation and percussion. No rales, rhonchi or wheezes noted. No increased work of breathing, no retractions or nasal flaring. Abdomen/GI: Soft, non-tender, with normal bowel sounds. No distension or tympany. No guarding or rebound. No evidence of tenderness throughout. Back: No spinal tenderness. No costovertebral tenderness. Full range of motion. Skin: Warm, dry with normal turgor. Normal color with no rashes, no lesions, and no evidence of cellulitis. Neuro: Awake and alert, GCS 15, oriented to person, place, time, and situation. Motor strength 5/5 in all extremities. Sensory grossly intact. Normal gait. 12:25 Musculoskeletal/extremity: Right wrist swelling, tenderness and decreased range of motion. Sensation intact, radial pulses intact. Vital Signs: 12:08 BP 108 / 81; Pulse 88; Resp 18; Temp 99; Pulse Ox 95% on R/A; Weight 95.25 kg; Height 5 ll1 ft. 10 in. ; Pain 9/10; 12:08 Body Mass Index 30.13 (95.25 kg, 177.8 cm) ll1 12:08 Pain Scale: Adult ll1 Procedures: 14:00 Splinting: using barbie wrap, Orthoglass splint, applied by nurse. Examined by me, post aj3 splint application: neurovascular intact, Patient tolerated well. MDM: 12:42 Patient medically screened. aj3 14:10 Differential diagnosis: dislocation, open fracture, contusion, abrasion. Data reviewed: aj3 vital signs, nurses notes, radiologic studies, plain films, Radial fracture noted on my review. Counseling: I had a detailed discussion with the patient and/or guardian regarding: the historical points, exam findings, and any diagnostic results supporting the discharge/admit diagnosis, radiology results. ED course: Patient with right radial fracture, splint applied and discharged home with orthopedic follow-up. He was given prescription for pain. Discharge instructions for supportive measures and ER return precautions given.. 12/11 12:39 Order name: Forearm Right XRAY; Complete Time: 13:44 3 12/11 12:39 Order name: Hand Right 3 View XRAY; Complete Time: 13:44 3 12/11 13:47 Order name: Splint - Sugar Tong - Forearm: short arm sugar tong splint to R arm; aj3 Complete Time: 14:20 Administered Medications: 12:48 Drug: Ibuprofen PO 800 mg Route: PO; ss 13:56 Follow up: Response: No adverse reaction jb4 12:48 Drug: Acetaminophen PO 650 mg Route: PO; ss 13:57 Follow up: Response: No adverse reaction jb4 13:56 Drug: HYDROcodone-acetaminophen PO 5 mg-325 mg 1 tabs Route: PO; jb4 14:20 Follow up: Response: No adverse reaction; Medication administered at discharge. Disposition: 18:42 Co-signature as Attending Physician, Marciano Handley DO Alvarenga was immediately available on-site ms3 in the Emergency Department for consultation in the care of the patient. Disposition Summary: 12/11/22 14:21 Discharge Ordered Location: Home aj3 Problem: new aj3 Symptoms: have improved aj3 Condition: Stable aj3 Diagnosis - Fracture of lower end of radius aj3 Followup: aj3 - With: Emergency Department - When: - Reason: Worsening of condition Followup: aj3 - With: Óscar Vences MD - When: - Reason: Recheck today's complaints Discharge Instructions: - Discharge Summary Sheet aj3 - Radial Fracture aj3 - Cast or Splint Care, Adult, [id number] aj3 Forms: - Medication Reconciliation Form aj3 - Thank You Letter aj3 - Antibiotic Education aj3 - Prescription Opioid Use aj3 - Patient Portal Instructions aj3 Prescriptions: - acetaminophen-codeine 300-15 mg Oral tablet - take 1 tablet by ORAL route every 8 hours as needed for pain; 12 tablet; aj3 Refills: 0, Product Selection Permitted Signatures: Dispatcher [employer] Anaya Little RN RN Vance Juarez RN RN jb4 Sri Merritt RN RN ll1 Marciano Handley DO DO ms3 Beatrice Carlton, TOOL WORKER TOOL WORKER aj3 Corrections: (The following items were deleted from the chart) 18:45 13:30 Splinting: using barbie wrap, Orthoglass splint, applied by nurse. Examined by suad oh3 post splint application: neurovascular intact, Patient tolerated well, aj3
[2022-12-11 14:40] VITALS: BP 108/81; TEMP 99; O2SAT 95
== END 2022-12-11 14:35 | disposition home or self-care (01) ==
LOC: ER 11:59
PROC: 2W3CX1Z Immobilization of Right Lower Arm using Splint (ICD-10-PCS; principal; 2022-12-11)
DX: S52.501A Unspecified fracture of the lower end of right radius, initial encounter for closed fracture (principal)
CPT/HCPCS: 99283

== ENCOUNTER 2024-05-21 12:40 | Emergency (ER) | payer OTHER ==
[2024-05-21 13:39] LABS: Absolute Lymphocytes (CBC) 0.6 K/uL (0.7-4.9); Absolute Monocytes 0.4 K/uL (0.1-1.3); Absolute Neutrophil 1.9 K/uL (1.8-8.0); Basophils % 0.2 % (0-1.3); Eosinophils % 1.2 % (0-4.4); Hematocrit 42.9 % (39.6-49.0); Hemoglobin 14.3 g/dL (13.6-17.9); Lymphocytes % 20.5 % (15.3-44.8); MCHC 33.4 g/dL (32.0-36.0); MCV 92.8 fL (80-100); MPV 9.2 fL (7.6-11.3); Monocytes % 14.7 % (3.3-12.3); Neutrophils % 63.4 % (41.7-73.7); Nucleated Red Blood Cells % 0.1 % (0-0); Platelets 148 thou/uL (152-406); RBC Red Blood Cell Count 4.62 M/uL (4.33-5.43); Red Cell Distribution Width 13.4 % (12.1-15.2)
[2024-05-21] MEDS ORDERED: NA CHLORIDE 0.9% 1,000 ML ONE (13:46)
[2024-05-21] MEDS ORDERED: KETOROLAC 30 MG/ML INJ ONE (13:46)
[2024-05-21 13:53] LABS: SARS-CoV-2 Antigen CONTROL BLUE LINE VIS/BG OK; SARS-CoV-2 Antigen Rapid Res Negative (Negative)
[2024-05-21 13:56] LABS: Anion Gap 6.9 mEq/L (5.0-15.0); Potassium 3.9 mEq/L (3.5-5.1)
[2024-05-21 13:57] LABS: Monoscreen NEG (NEG)
--- NOTE | 2024-05-21 14:47 | RAD REPORT ---
Procedure: Chest Pa And Lat (2 Views) HISTORY: Cough COMPARISON: 2022 FINDINGS: The lungs appear clear of acute infiltrate. No significant pleural effusion noted. The heart is normal size. IMPRESSION: No acute abnormality is displayed.
--- NOTE | 2024-05-21 14:57 | EDPHYS ---
Physician Documentation [facility] Name: Damian Eddy Jr Age: 39 yrs Sex: Male : 1985 Arrival Date: 05/21/2024 Time: 12:40 Bed 4 Private MD: ED Physician Dima Lock HPI: 05/21 15:52 This 39 yrs old [place] Male presents to ER via Ambulatory with complaints of Flu sb4 Symptoms. 15:52 Sinus congestion, cough, headache, fever x 3 days. Has taken Tylenol, ibuprofen, and sb4 DayQuil/NyQuil without relief in symptoms. Does report some pain in his chest with coughing and occasional wheezing. Denies any medical problems or daily medications. Denies any GI symptoms-no nausea, vomiting, diarrhea. Denies any known sick contact. Historical: - Allergies: 13:03 No Known Allergies; hb - PMHx: 13:03 Pancreatitis; hb - Immunization history:: Adult Immunizations up to date. - Infectious Disease History:: Denies. - Social history:: Smoking status: Reported history of juuling and/or vaping. ROS: 15:52 Abdomen/GI: Negative for abdominal pain, nausea, vomiting, diarrhea, and constipation, sb4 15:52 Constitutional: Positive for body aches, chills, fatigue, fever, malaise, 15:52 ENT: Positive for sinus congestion, sore throat, 15:52 Neck: Positive for swollen nodes, 15:52 Respiratory: Positive for cough, 15:52 All other systems are negative, Exam: 15:52 Head/Face: Normocephalic, atraumatic. Eyes: Extra-ocular motions intact. Periorbital sb4 areas with no swelling, redness, or edema. ENT: Mucous membranes moist. Cardiovascular: Regular rate and rhythm with a normal S1 and S2. Respiratory: No increased work of breathing, no retractions or nasal flaring. Abdomen/GI: Soft, non-tender, no distension. Skin: Warm, dry with normal turgor. Normal color with no rashes, no lesions, and no evidence of cellulitis. 15:52 Constitutional: The patient appears alert, awake, obviously ill, 15:52 ENT: Posterior pharynx: swelling, that is mild, erythema, that is moderate, 15:52 Neck: Lymph nodes: lymphadenopathy is appreciated, post auricular nodes, Vital Signs: 13:00 BP 128 / 86; Pulse 97; Resp 18; Temp 98.6(O); Pulse Ox 100% on R/A; Weight 81.65 kg; hb Height 5 ft. 10 in. ; Pain 9/10; 14:25 BP 131 / 76; Pulse 84; Resp 18; Pulse Ox 100% on R/A; ld1 15:25 BP 101 / 70; Pulse 74; Resp 15; Pulse Ox 100% on R/A; cm10 13:00 Body Mass Index 25.83 (81.65 kg, 177.8 cm) hb 13:00 Pain Scale: Adult hb MDM: 12:49 Medical Screening Exam initiated sb4 15:54 Data reviewed: vital signs, nurses notes, lab test result(s), radiologic studies, and sb4 as a result, I will discharge patient. Counseling: I had a detailed discussion with the patient and/or guardian regarding the historical points, exam findings, and any diagnostic results supporting the discharge/admit diagnosis, lab results, radiology results, to return to the emergency department if symptoms worsen or persist or if there are any questions or concerns that arise at home. 05/21 13:04 Order name: CBC with Diff; Complete Time: 13:50 sb4 05/21 13:04 Order name: BMP; Complete Time: 14:05 sb4 05/21 13:04 Order name: Brooks Screen Profile; Complete Time: 14:05 sb4 05/21 13:04 Order name: Strep sb4 05/21 13:04 Order name: Flu; Complete Time: 13:54 sb4 05/21 13:04 Order name: SARS RAPID; Complete Time: 13:54 sb4 05/21 13:56 Order name: Throat Culture EDTN 05/21 13:12 Order name: Chest Pa And Lat (2 Views) XRAY; Complete Time: 14:48 sb4 05/21 13:04 Order name: IV Start; Complete Time: 13:34 sb4 Administered Medications: 14:24 Drug: NS 0.9% IV 1000 ml IV at 1000 ml once; to be given as a bolus over 60 minutes ld1 Route: IV; Rate: 1000 ml; Site: left antecubital; 15:26 Follow up: Response: No adverse reaction; IV Status: Completed infusion; IV Intake: cm10 1000ml 14:24 Drug: Ketorolac IVP 15 mg IVP once Route: IVP; Site: left antecubital; ld1 15:26 Follow up: Response: No adverse reaction cm10 Disposition Summary: 05/21/24 14:57 Discharge Ordered Notes: Location: Home sb4 Problem: new sb4 Symptoms: have improved sb4 Condition: Stable sb4 Diagnosis - Influenza due to identified novel influenza A virus sb4 Followup: sb4 - With: Emergency Department - When: As needed - Reason: Trouble breathing, Worsening of condition Discharge Instructions: - Discharge Summary Sheet sb4 - Influenza, Adult, [id number] sb4 Forms: - Work release form sb4 - Patient Portal Instructions sb4 - Leadership Thank You Letter sb4 Prescriptions: - Prednisone 20 mg Oral Tablet - take 2 tablets ORAL route once daily for 5 days; 10 tablet; Refills: 0, Product sb4 Selection Permitted Addendum: 05/26/2024 02:34 I was immediately available for consultation during this patient's visit. I did not e c2 personally see the patient or discuss the patient with the ERIKA. . Signatures: Dispatcher [employer] Isabel Allen RN RN Tammi Handley RN RN ld1 Lore Armstrong, PAFrancisco PAFrancisco sb4 Dima Lock MD MD ec2 Gema Sinclair RN cm10
--- NOTE | 2024-05-21 14:57 | ER ---
Nurse's Notes [facility] Name: Damian Eddy Jr Age: 39 yrs Sex: Male : 1985 Arrival Date: 05/21/2024 Time: 12:40 Bed 4 Private MD: Diagnosis: Influenza due to identified novel influenza A virus Presentation: 05/21 13:00 Chief complaint: Headache, sinus congestion, sore throat, swollen glands in neck, hb painful cough, body aches, fever, and malaise x 2 days, rash on face today. TMAX 101.8 this morning, had Tylenol and Motrin at 0800. Coronavirus screen: Client presents with at least one sign or symptom that may indicate coronavirus-19. Provider contacted for isolation considerations. Ebola Screen: No symptoms or risks identified at this time. Initial Sepsis Screen: Does the patient meet any 2 criteria? No. Patient's initial sepsis screen is negative. Does the patient have a suspected source of infection? No. Patient's initial sepsis screen is negative. Risk Assessment: Do you want to hurt yourself or someone else? Patient reports no desire to harm self or others. Onset of symptoms was May 19, 2024. 13:00 Method Of Arrival: Ambulatory hb 13:00 Acuity: CIRILO 3 hb Historical: - Allergies: 13:03 No Known Allergies; hb - PMHx: 13:03 Pancreatitis; hb - Immunization history:: Adult Immunizations up to date. - Infectious Disease History:: Denies. - Social history:: Smoking status: Reported history of juuling and/or vaping. Screenin:25 [facility] ED Fall Risk Assessment (Adult) History of falling in the last 3 months, ld1 including since admission No falls in past 3 months (0 pts) Confusion or Disorientation No (0 pts) Intoxicated or Sedated No (0 pts) Impaired Gait No (0 pts) Mobility Assist Device Used No (0 pt) Altered Elimination No (0 pt) Score/Fall Risk Level 0 - 2 = Low Risk Oriented to surroundings, Maintained a safe environment, Educated pt \T\ family on fall prevention, incl call for assistance when getting out of bed, Assessed \T\ reinforced patient's understanding of fall precautions, Provided non-skid footwear, Hourly rounding (assess needs \T\ fall precautionary measures) done, Used ambulatory aids as needed (educated on \T\ assisted with), Used gait belt as appropriate. Abuse screen: Denies threats or abuse. Denies injuries from another. Nutritional screening: No deficits noted. Tuberculosis screening: No symptoms or risk factors identified. Assessment: 14:25 General: Appears in no apparent distress. comfortable, Behavior is calm, cooperative, ld1 appropriate for age. Pain: Complains of pain in neck Pain does not radiate. Pain currently is 8 out of 10 on a pain scale. Quality of pain is described as throbbing, Pain began suddenly, Is continuous. Neuro: Level of Consciousness is awake, alert, obeys commands, Oriented to person, place, time, situation. Cardiovascular: Capillary refill < 3 seconds Patient's skin is warm and dry. Respiratory: Airway is patent Respiratory effort is even, unlabored. GI: Abdomen is flat, non-distended. : No signs and/or symptoms were reported regarding the genitourinary system. EENT: No signs and/or symptoms were reported regarding the EENT system. Derm: No signs and/or symptoms reported regarding the dermatologic system. Musculoskeletal: No signs and/or symptoms reported regarding the musculoskeletal system. Vital Signs: 13:00 BP 128 / 86; Pulse 97; Resp 18; Temp 98.6(O); Pulse Ox 100% on R/A; Weight 81.65 kg; hb Height 5 ft. 10 in. ; Pain 9/10; 14:25 BP 131 / 76; Pulse 84; Resp 18; Pulse Ox 100% on R/A; ld1 15:25 BP 101 / 70; Pulse 74; Resp 15; Pulse Ox 100% on R/A; cm10 13:00 Body Mass Index 25.83 (81.65 kg, 177.8 cm) hb 13:00 Pain Scale: Adult hb ED Course: 12:43 Patient arrived in ED. al6 12:45 Lore Armstrong PA-C is PHCP. sb4 12:45 Dima Lock MD is Attending Physician. sb4 13:03 Triage completed. hb 13:04 Arm band placed on. hb 13:35 SARS RAPID Sent. kb4 13:35 Flu Sent. kb4 13:35 Strep Sent. kb4 13:35 [place] Screen Profile Sent. kb4 13:35 BMP Sent. kb4 13:35 CBC with Diff Sent. kb4 13:35 Initial lab(s) drawn, by pr, sent to lab. COVID swab sent to lab. Flu and/or RSV swab kb4 sent to lab. Strep swab sent to lab. Inserted saline lock: 22 gauge in left antecubital area, using aseptic technique. Blood collected. Flushed with 10 mL NS. 14:13 Chest Pa And Lat (2 Views) XRAY In Process Unspecified. EDMS 14:24 Tammi Handley, RN is Primary Nurse. ld1 14:25 Patient has correct armband on for positive identification. Placed in gown. Bed in low ld1 position. Call light in reach. Side rails up X2. playground monitor on. Pulse ox on. NIBP on. Door closed. Noise minimized. Warm blanket given. 14:25 No provider procedures requiring assistance completed. ld1 15:26 Provided Education on: Follow-up instructions. cm10 Administered Medications: 14:24 Drug: NS 0.9% IV 1000 ml IV at 1000 ml once; to be given as a bolus over 60 minutes ld1 Route: IV; Rate: 1000 ml; Site: left antecubital; 15:26 Follow up: Response: No adverse reaction; IV Status: Completed infusion; IV Intake: cm10 1000ml 14:24 Drug: Ketorolac IVP 15 mg IVP once Route: IVP; Site: left antecubital; ld1 15:26 Follow up: Response: No adverse reaction cm10 Medication: 14:25 VIS not applicable for this client. ld1 Intake: 15:26 IV: 1000ml; Total: 1000ml. cm10 Outcome: 14:57 Discharge ordered by . sb4 15:25 Patient left the ED. zm 15:26 Discharged to home ambulatory, with significant other, cm10 15:26 Condition: good 15:26 Discharge instructions given to patient, Instructed on discharge instructions, follow up and referral plans. medication usage, Demonstrated understanding of instructions, follow-up care, medications, Prescriptions given X 1, Signatures: Dispatcher [employer] EDMS Isabel Sawyer RN RN Tammi Handley RN RN ld1 Marleny Sinclair Sophia, PA-C PA-C sb4 Gema Sinclair RN RN cm10 Aruna Diallo al6 Avis Martines kb4
[2024-05-21 15:40] VITALS: TEMP 98.6; O2SAT 100
[2024-05-21 15:51] VITALS: BP 101/70
== END 2024-05-21 15:25 | disposition home or self-care (01) ==
LOC: ER 12:40
DX: J09.X2 Influenza due to identified novel influenza A virus with other respiratory manifestations (principal); F17.290 Nicotine dependence, other tobacco product, uncomplicated; Z11.52 Encounter for screening for COVID-19
CPT/HCPCS: 96361; 87070; 85025; 80048; 36415; 86308; 87081; 87804 ×2; 71046; 96374; 99285; 87811; J7030

== ENCOUNTER 2024-08-06 08:49 | Emergency (ER) | payer OTHER ==
[2024-08-06] MEDS ORDERED: KETOROLAC 30 MG/ML INJ ONE (09:13)
[2024-08-06 09:23] LABS: Absolute Eosinophils 0.1 K/uL (0-0.5); Absolute Lymphocytes (CBC) 1.3 K/uL (0.7-4.9); Absolute Monocytes 0.4 K/uL (0.1-1.3); Absolute Neutrophil 1.6 K/uL (1.8-8.0); Basophils % 0.7 % (0-1.3); Eosinophils % 2.5 % (0-4.4); Hematocrit 44.2 % (39.6-49.0); Hemoglobin 15.2 g/dL (13.6-17.9); Lymphocytes % 39.3 % (15.3-44.8); MCH 32.2 pg (27.0-35.0); MCHC 34.3 g/dL (32.0-36.0); MPV 8.9 fL (7.6-11.3); Monocytes % 10.5 % (3.3-12.3); Nucleated Red Blood Cells % 0.1 % (0-0); Platelets 205 thou/uL (152-406); Red Cell Distribution Width 14.4 % (12.1-15.2)
[2024-08-06 09:39] LABS: Anion Gap 7.9 mEq/L (5.0-15.0); BUN Blood Urea Nitrogen 13 mg/dL (7-18); Bicarbonate 28 mEq/L (21-32); Glomerular Filtration Rate 114 ml/min (=/>90); Glucose Level 87 mg/dL (74-106); Potassium 3.9 mEq/L (3.5-5.1); Sodium Level 136 mEq/L (136-145)
[2024-08-06 09:40] LABS: Troponin High Sensitivity < 3.0 pg/mL (<58.9)
--- NOTE | 2024-08-06 09:55 | EDPHYS ---
Physician Documentation [facility] Name: Damian Eddy Jr Age: 39 yrs Sex: Male : 1985 Arrival Date: 08/06/2024 Time: 08:49 Bed DX3 Private MD: ED Physician Dima Lock HPI: 08/06 09:01 This 39 yrs old Male presents to ER via Unassigned with complaints of Chest Pain, Arm ec2 Pain. 09:01 Patient arrives today for evaluation of left-sided chest pain. Patient reports the pain ec2 started approximately 1 hour prior to arrival. Patient reports no falls injuries or trauma. Patient reports no history of medical problems, no daily medications. Does vape regularly.. Historical: - Allergies: :59 No Known Allergies; iw - Home Meds: :59 None [Active]; iw - PMHx: :59 Pancreatitis; iw - PSHx: 08:59 None; iw - Immunization history:: Adult Immunizations up to date. - Infectious Disease History:: Denies. - Social history:: Smoking status: Reported history of juuling and/or vaping. ROS: 09:02 Constitutional: as per hpi ec2 Exam: 09:02 Constitutional: GEN: NAD Head: atraumatic Eyes: EOMI Ears: External ears are ec2 normal. CV: regular rate LUNGS: no respiratory distress ABD: non-distended SKIN: no evidence of rashes MSK: no evidence of trauma, reproducible left chest wall TTP without deformities or crepitus. Vital Signs: 09:02 BP 125 / 89; Pulse 90; Resp 16; Pulse Ox 99% ; Weight 83.91 kg; Height 5 ft. 10 in. ; iw Pain 10; 09:02 Body Mass Index 26.54 (83.91 kg, 177.8 cm) iw 09:02 Pain Scale: Adult iw MDM: 08:54 Medical Screening Exam initiated ec2 09:02 Data reviewed: vital signs, nurses notes. ED course: Patient arrives today for further ec2 evaluation of left-sided chest pain. Emanation yields MSK findings as above. Will obtain lab work, EKG, chest x-ray. DDx considered include processes such as costochondritis, ACS, PE. Favor MSK given the patient's reproducible chest wall TTP. 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 09:54 ED course: Chest x-ray interpreted by me, shows no acute intrathoracic process. Will ec2 discharge home, suspect costochondritis. Return precautions given.. 08/06 09:00 Order name: Basic Metabolic Panel; Complete Time: 09:42 ec2 08/06 09:00 Order name: CBC with Diff; Complete Time: :42 ec2 08/06 09:00 Order name: Troponin HS; Complete Time: :42 ec2 08/06 09:00 Order name: XRAY Chest (1 view) ec2 08/06 09:00 Order name: Cardiac monitoring; Complete Time: 10:09 ec2 08/06 09:00 Order name: EKG - Nurse/Tech; Complete Time: 09:06 ec2 08/06 09:00 Order name: IV Saline Lock; Complete Time: 09:18 ec2 08/06 09:00 Order name: Labs collected and sent; Complete Time: :18 ec2 08/06 09:00 Order name: O2 Per Protocol; Complete Time: 10:09 ec2 08/06 09:00 Order name: O2 Sat Monitoring; Complete Time: 10:09 ec2 Administered Medications: 09:23 Drug: Ketorolac IVP 30 mg IVP once Route: IVP; Site: left antecubital; iw 10:00 Follow up: Response: No adverse reaction iw Disposition Summary: 08/06/24 09:55 Discharge Ordered Notes: Location: Home ec2 Condition: Stable ec2 Diagnosis - Costochondritis ec2 Followup: ec2 - With: Private Physician - When: - Reason: Re-evaluation by your physician Discharge Instructions: - Discharge Summary Sheet ec2 - Costochondritis, Clar-xs-Whmg ec2 Forms: - Work release form ec2 - Medication Reconciliation Form ec2 - Antibiotic Education ec2 - Prescription Opioid Use ec2 - Patient Portal Instructions ec2 - Leadership Thank You Letter ec2 Prescriptions: - methocarbamol 500 mg Oral tablet - take 1 tablet ORAL route 4 times per day; 20 tablet; Refills: 0, Product ec2 Selection Permitted Signatures: Dispatcher [employer] Ines Borrego RN RN iw Corral, Edwin, MD MD ec2
--- NOTE | 2024-08-06 09:55 | ER ---
Nurse's Notes [facility] Name: Damian Eddy Jr Age: 39 yrs Sex: Male : 1985 Arrival Date: 08/06/2024 Time: 08:49 Bed DX3 Private MD: Diagnosis: Costochondritis Presentation: 08/06 08:56 Chief complaint: Patient states: pain to left side of chest into arm pit and left arm iw and jaw X one hour ago. 09:03 Coronavirus screen: At this time, the client does not indicate any symptoms associated iw with coronavirus-19. Ebola Screen: No symptoms or risks identified at this time. Initial Sepsis Screen: Does the patient meet any 2 criteria? No. Patient's initial sepsis screen is negative. Does the patient have a suspected source of infection? No. Patient's initial sepsis screen is negative. Risk Assessment: Do you want to hurt yourself or someone else? Patient reports no desire to harm self or others. Onset of symptoms was August 06, 2024. 09:03 Method Of Arrival: Ambulatory iw 09:03 Acuity: CIRILO 3 iw Triage Assessment: 09:00 General: Appears in no apparent distress. Behavior is calm, cooperative. Pain: iw Complains of pain in anterior aspect of left upper chest. Historical: - Allergies: 08:59 No Known Allergies; iw - Home Meds: 08:59 None [Active]; iw - PMHx: 08:59 Pancreatitis; iw - PSHx: 08:59 None; iw - Immunization history:: Adult Immunizations up to date. - Infectious Disease History:: Denies. - Social history:: Smoking status: Reported history of juuling and/or vaping. Screenin:10 [facility] ED Fall Risk Assessment (Adult) History of falling in the last 3 months, iw including since admission No falls in past 3 months (0 pts) Confusion or Disorientation No (0 pts) Intoxicated or Sedated No (0 pts) Impaired Gait No (0 pts) Mobility Assist Device Used No (0 pt) Altered Elimination No (0 pt) Score/Fall Risk Level 0 - 2 = Low Risk Oriented to surroundings, Maintained a safe environment. Abuse screen: Denies threats or abuse. Denies injuries from another. Nutritional screening: No deficits noted. Tuberculosis screening: No symptoms or risk factors identified. Assessment: 09:10 General: Appears in no apparent distress. Behavior is calm, cooperative. Pain: iw Complains of pain in anterior aspect of left upper chest Pain radiates to left arm Pain currently is 8 out of 10 on a pain scale. Pain began 1 hour ago. Is intermittent. Neuro: Level of Consciousness is awake, alert, obeys commands, Oriented to person, place, time, situation, Moves all extremities. Full function. Cardiovascular: Patient's skin is warm and dry. Respiratory: Respiratory effort is even, unlabored, Respiratory pattern is regular, symmetrical. GI: Abdomen is non-distended. Musculoskeletal: Range of motion: intact in all extremities. Vital Signs: 09:02 BP 125 / 89; Pulse 90; Resp 16; Pulse Ox 99% ; Weight 83.91 kg; Height 5 ft. 10 in. ; iw Pain 11/22; 09:02 Body Mass Index 26.54 (83.91 kg, 177.8 cm) iw 09:02 Pain Scale: Adult iw ED Course: 08:53 Patient arrived in ED. al6 08:54 Dima Lock MD is Attending Physician. ec2 09:00 Arm band placed on. EKG completed in triage. Results shown to MD. iw 09:03 Triage completed. iw 09:10 Patient has correct armband on for positive identification. Provided Education on: iw result time . Client placed on continuous cardiac and pulse oximetry monitoring. NIBP monitoring applied. 09:18 Basic Metabolic Panel Sent. zm 09:18 CBC with Diff Sent. zm 09:18 Troponin HS Sent. zm 09:57 XRAY Chest (1 view) In Process Unspecified. EDMS 10:08 No provider procedures requiring assistance completed. IV discontinued, intact, iw bleeding controlled, No redness/swelling at site. Pressure dressing applied. Patient maintains SpO2 saturation greater than 95% on room air. 10:09 Ines Woodard, RN is Primary Nurse. iw Administered Medications: 09:23 Drug: Ketorolac IVP 30 mg IVP once Route: IVP; Site: left antecubital; iw 10:00 Follow up: Response: No adverse reaction iw Medication: 09:10 VIS not applicable for this client. iw Outcome: 09:55 Discharge ordered by MD. ec2 10:09 Discharged to home ambulatory, iw 10:09 Condition: good 10:09 Discharge instructions given to patient, Instructed on discharge instructions, follow up and referral plans. Demonstrated understanding of instructions, follow-up care, medications, Prescriptions given X 1, 10:10 Patient left the ED. iw Signatures: Dispatcher [employer] Ines Borrego RN RN iw Martinez, Zaina zm Corral, Edwin, MD MD ec2 Aruna [email or web address]
--- NOTE | 2024-08-06 10:12 | RAD REPORT ---
Procedure: Chest Single View HISTORY: Chest pain COMPARISON: 2022 FINDINGS: The lungs appear clear of acute infiltrate. No significant pleural effusion noted. The heart is normal size. IMPRESSION: No acute abnormality is displayed.
[2024-08-06 10:57] VITALS: BP 125/89; O2SAT 99
--- NOTE | 2024-08-06 12:00 | EKG ---
Test Date: 2024-08-06 Test Time: 09:02:03 Welding Machine Operator Arc: JACQUELIN MEASUREMENT RESULTS: Intervals: Rate: 89 DC: 114 QRSD: 78 QT: 348 QTc: 423 [place]: P: 30 DC: 114 QRS: 21 T: 22 INTERPRETIVE STATEMENTS: Normal sinus rhythm with sinus arrhythmia Normal ECG No previous ECG available for comparison Electronically Signed On 08-06-24 11:59:07 CDT by Jaden Gómez
== END 2024-08-06 10:10 | disposition home or self-care (01) ==
LOC: ER 08:49
DX: M94.0 Chondrocostal junction syndrome [Tietze] (principal)
CPT/HCPCS: 36415; 71045; 80048; 84484; 85025; 93005; 96374; 99284

== ENCOUNTER 2024-12-23 14:07 | Emergency (ER) | payer OTHER ==
--- NOTE | 2024-12-23 15:50 | RAD REPORT ---
EXAM: Scrotum Testicles HISTORY: 39 years Male Left Testicular Pain COMPARISON: None TECHNIQUE: Multiplanar grayscale and color Doppler images were obtained in a testicular/scrotal ultra sound. Spectral analysis of the Doppler waveforms of the testicles were performed. FINDINGS: Right testicle: Normal in echogenicity. No focal mass. Normal internal flow. The right testicle delaney ures 4.2 x 3.5 x 2.6 cm with volume of 19.8 mL. A few right testicular microliths noted. Left testicle: Normal in echogenicity. No focal mass. Normal internal flow. The left testicle measur es 5.1 x 2.3 x 3.2 cm with volume of 19.7 mL. Right epididymis. No epididymal cyst. Normal internal flow. Left epididymis. No epididymal cyst. Normal internal flow. No significant hydroceles. Left varicocele. IMPRESSION: Left sided varicocele. Bilateral testicular blood flow.
--- NOTE | 2024-12-23 16:01 | ER ---
Nurse's Notes [facility] Name: Damian Eddy Jr Age: 39 yrs Sex: Male : 1985 Arrival Date: 12/23/2024 Time: 14:07 Bed [id number] Private MD: Diagnosis: Scrotal varices Presentation: 12/23 14:18 Chief complaint: Patient states: left testicular pain since , pt states "I work aa5 at [employer] and I climb a lot so I think I got a strain". Coronavirus screen: At this time, the client does not indicate any symptoms associated with coronavirus-19. Ebola Screen: Patient denies travel to an Ebola-affected area in the 21 days before illness onset. Initial Sepsis Screen: Does the patient meet any 2 criteria? No. Patient's initial sepsis screen is negative. Does the patient have a suspected source of infection? No. Patient's initial sepsis screen is negative. Risk Assessment: Do you want to hurt yourself or someone else? Patient reports no desire to harm self or others. Onset of symptoms was December 21, 1999. 14:18 Acuity: CIRILO 3 aa5 14:18 Method Of Arrival: Ambulatory aa5 Triage Assessment: 14:20 General: Appears in no apparent distress. Behavior is cooperative, appropriate for age, bp anxious. Pain: Complains of pain in groin. EENT: No deficits noted. Neuro: No deficits noted. Cardiovascular: No deficits noted. Respiratory: No deficits noted. GI: No signs and/or symptoms were reported involving the gastrointestinal system. : No signs and/or symptoms were reported regarding the genitourinary system. Derm: No deficits noted. Musculoskeletal: No deficits noted. Historical: - Allergies: 14:17 No Known Allergies; aa5 - Home Meds: 14:17 None [Active]; aa5 - PMHx: 14:17 Pancreatitis; aa5 - PSHx: 14:17 None; aa5 - Immunization history:: Adult Immunizations unknown. - Infectious Disease History:: Denies. - Social history:: Smoking status: Reported history of juuling and/or vaping. Screenin:18 [facility] ED Fall Risk Assessment (Adult) History of falling in the last 3 months, bp including since admission No falls in past 3 months (0 pts) Confusion or Disorientation No (0 pts) Intoxicated or Sedated No (0 pts) Impaired Gait No (0 pts) Mobility Assist Device Used No (0 pt) Altered Elimination No (0 pt) Score/Fall Risk Level 0 - 2 = Low Risk Oriented to surroundings. Abuse screen: Denies threats or abuse. Denies injuries from another. Nutritional screening: No deficits noted. Tuberculosis screening: No symptoms or risk factors identified. Assessment: 16:18 Reassessment: Patient appears in no apparent distress at this time. Patient is alert, bp oriented x 3, equal unlabored respirations, skin warm/dry/pink. Vital Signs: 14:18 BP 127 / 87; Pulse 109; Resp 18 S; Temp 98.1(O); Pulse Ox 100% on R/A; Weight 86.18 kg aa5 (R); Height 5 ft. 10 in. (R); 16:18 BP 131 / 75; Pulse 89; Resp 16; Pulse Ox 100% ; bp 14:18 Body Mass Index 27.26 (86.18 kg, 177.8 cm) aa5 ED Course: 14:12 Patient arrived in ED. cj3 14:12 Salvatore Adams FNP-C is PHCP. dr5 14:12 Coco Woodard MD is Attending Physician. dr5 14:17 Arm band placed on. aa5 14:19 Triage completed. aa5 14:36 Shukri Franks, RN is Primary Nurse. bp 15:28 US Scrotum Testicles In Process Unspecified. EDMS 16:00 Evans Villanueva MD is Referral Physician. dr5 16:18 Patient has correct armband on for positive identification. bp 16:18 No provider procedures requiring assistance completed. Patient did not have IV access bp during this emergency room visit. Administered Medications: No medications were administered Medication: 16:18 VIS not applicable for this client. bp Outcome: 16:01 Discharge ordered by . dr5 16:18 Discharged to home ambulatory, with family, bp 16:18 Condition: stable 16:18 Discharge instructions given to patient, Instructed on discharge instructions, follow up and referral plans. Demonstrated understanding of instructions, follow-up care, 16:20 Patient left the ED. bp Signatures: Dispatcher [employer] EDCO Lelia Good RN RN aa Shukri Franks RN RN Salvatore Mcconnell FNP-C FNP-Cdr5 Margarita Gamez cj3
--- NOTE | 2024-12-23 16:01 | EDPHYS ---
Physician Documentation [facility] Name: Damian Eddy Jr Age: 39 yrs Sex: Male : 1985 Arrival Date: 12/23/2024 Time: 14:07 Bed [id number] Private MD: ED Physician Coco Woodard HPI: 12/23 15:00 This 39 yrs old Male presents to ER via Ambulatory with complaints of dr5 Testicular Pain, Groin Pain. 15:00 Onset: The symptoms/episode began/occurred 4 day(s) ago. Patient is a 39-year-old male dr5 with history of pancreatitis coming in with 4 days of left testicular pain. Patient reports that when he is climbing and walking upstairs, the pain in his left testicle hurts worse. Patient reports when he rests for a couple days the pain improves. Patient denies dysuria or painful ejaculation. Patient denies rash on penis or pain to right testicle. Patient reports that he feels like there is a small knot on the back of his left testicle.. Historical: - Allergies: 14:17 No Known Allergies; aa5 - Home Meds: 14:17 None [Active]; aa5 - PMHx: 14:17 Pancreatitis; aa5 - PSHx: 14:17 None; aa5 - Immunization history:: Adult Immunizations unknown. - Infectious Disease History:: Denies. - Social history:: Smoking status: Reported history of juuling and/or vaping. ROS: 15:00 Constitutional: as per hpi dr5 Exam: 15:02 Constitutional: This is a well developed, well nourished patient who is awake, alert, dr5 and in no acute distress. Head/Face: Normocephalic, atraumatic. Eyes: Pupils equal round and reactive to light, extra-ocular motions intact. Lids and lashes normal. Conjunctiva and sclera are non-icteric and not injected. Cornea within normal limits. Periorbital areas with no swelling, redness, or edema. Neck: Trachea midline, no thyromegaly or masses palpated, and no cervical lymphadenopathy. Supple, full range of motion without nuchal rigidity, or vertebral point tenderness. No Meningismus. Chest/axilla: Normal chest wall appearance and motion. Nontender with no deformity. No lesions are appreciated. Cardiovascular: Regular rate and rhythm with a normal S1 and S2. Normal PMI, no JVD. No pulse deficits. Respiratory: Lungs have equal breath sounds bilaterally, clear to auscultation. No rales, rhonchi or wheezes noted. No increased work of breathing, no retractions or nasal flaring. Abdomen/GI: Soft, non-tender, non-distended Back: No spinal tenderness. No costovertebral tenderness. Full range of motion. Skin: Warm, dry with normal turgor. Normal color with no rashes, no lesions, and no evidence of cellulitis. MS/ Extremity: Pulses equal, no cyanosis. Neurovascular intact. Full, normal range of motion. Neuro: Awake and alert, GCS 15, oriented to person, place, time, and situation. Cranial nerves II-XII grossly intact. Motor strength 5/5 in all extremities. Sensory grossly intact. Cerebellar exam normal. Normal gait. 15:02 : Male external genitalia: normal, Circumcision noted. cremasteric reflex present right, present left, erythema, is absent, penile discharge, is absent, swelling: is not appreciated, tenderness, is not appreciated, Vital Signs: 14:18 BP 127 / 87; Pulse 109; Resp 18 S; Temp 98.1(O); Pulse Ox 100% on R/A; Weight 86.18 kg aa5 (R); Height 5 ft. 10 in. (R); 16:18 BP 131 / 75; Pulse 89; Resp 16; Pulse Ox 100% ; bp 14:18 Body Mass Index 27.26 (86.18 kg, 177.8 cm) aa5 MDM: 14:12 Medical Screening Exam initiated dr5 16:14 Differential diagnosis: nonspecific abdominal pain, Varicocele, spermatocele, dr5 hydrocele. Data reviewed: vital signs, nurses notes, radiologic studies, ultrasound. Consideration of Admission/Observation Escalation considered patient found to have testicular torsion. I considered the following discharge prescriptions or medication management in the emergency department. Historians other than the Patient: Spouse/Significant Other: Spouse. Care significantly affected by the following chronic conditions: Pancreatitis. Care significantly affected by the following Social Determinants of Health: Poor access to healthcare and/or lack of insurance, Poor access to transportation, Problems related to employment. Counseling: I had a detailed discussion with the patient and/or guardian regarding the historical points, exam findings, and any diagnostic results supporting the discharge/admit diagnosis, the presence of at least one elevated blood pressure reading (>120/80) during this emergency department visit, radiology results, the need for outpatient follow up, for definitive care, a family practitioner, a urologist, to return to the emergency department if symptoms worsen or persist or if there are any questions or concerns that arise at home. Special discussion: I discussed with the patient/guardian in detail that at this point there is no indication for admission to the hospital. It is understood, however, that if the symptoms persist or worsen the patient needs to return immediately for re-evaluation. Based on the history and exam findings, there is no indication for further emergent testing or inpatient evaluation. I discussed with the patient/guardian the need to see the urologist for further evaluation of the symptoms. ED course: Recommended patient buy close fitting underwear for scrotal support, use NSAIDs as needed for pain and swelling, and follow-up with primary care doctor. Ultrasound results were given to patient to take with him to primary care doctor and urologist. All questions answered. Strict ER precautions given.. 12/23 14:31 Order name: US Scrotum Testicles; Complete Time: 15:58 dr5 Administered Medications: No medications were administered Disposition Summary: 12/23/24 16:01 Discharge Ordered Notes: Location: Home dr5 Condition: Stable dr5 Diagnosis - Scrotal varices dr5 Followup: dr5 - With: Emergency Department - When: As needed - Reason: Worsening of condition Followup: dr5 - With: Evans Villanueva MD - When: 1 week - Reason: Recheck today's complaints, Continuance of care, Re-evaluation by your physician Discharge Instructions: - Discharge Summary Sheet dr5 - Varicocele dr5 Forms: - Work release form dr5 - Medication Reconciliation Form dr5 - Patient Portal Instructions dr5 - Leadership Thank You Letter dr5 Prescriptions: - Ibuprofen 800 mg Oral Tablet - take 1 tablet ORAL route every 12 hours As needed take with food; 20 tablet; dr5 Refills: 0, Product Selection Permitted Signatures: Dispatcher [employer] Lelia Medina RN RN aa5 Salvatore Adams, HITESH-C CARBON SETTER-Cdr5
[2024-12-23 16:32] VITALS: TEMP 98.1; O2SAT 100
[2024-12-23 16:33] VITALS: BP 131/75
== END 2024-12-23 16:20 | disposition home or self-care (01) ==
LOC: ER 14:07
DX: I86.1 Scrotal varices (principal)
CPT/HCPCS: 76870; 99282